=== PATIENT | male | born 1990 ===

== ENCOUNTER 2017-03-31 16:58 | Emergency (ER) | payer OTHER ==
[~2017-03-31] VITALS: Ht 172.7 cm; Wt 72.6 kg
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
[2017-03-31 17:23] LABS: AMPHETAMINES/METAMPHETAMINES NEGATIVE ng/mL (<1000)
[2017-03-31 18:04] VITALS: BP 127/65
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
== END 2017-03-31 18:06 | disposition short-term general hospital (02) ==
LOC: ER 16:58
PROVIDERS: Emergency Medicine
DX: S09.90XA Unspecified injury of head, initial encounter (principal); R41.82 Altered mental status, unspecified; V29.9XXA Motorcycle rider (driver) (passenger) injured in unspecified traffic accident, initial encounter